=== PATIENT | female | born 1965 | race Caucasian/White ===

== ENCOUNTER → 2020-07-09 | Outpatient (CLI) | payer OTHER ==
[~2020-07-09] MED LIST: NAPROSYN500 MG PO; ZOFRAN4 MG PO
== END ==
LOC: KOH-I 09:41
DX: M25.571 Pain in right ankle and joints of right foot (principal); M19.071 Primary osteoarthritis, right ankle and foot
CPT/HCPCS: 73610; 73630

== ENCOUNTER → 2021-04-22 | Outpatient (CLI) | payer OTHER | LOC: EXRD 14:03 | DX: M25.511 Pain in right shoulder (principal); M25.512 Pain in left shoulder; M54.2 Cervicalgia; M25.529 Pain in unspecified elbow; M54.50 Low back pain, unspecified; M25.549 Pain in joints of unspecified hand; M25.579 Pain in unspecified ankle and joints of unspecified foot; Z87.81 Personal history of (healed) traumatic fracture; M47.817 Spondylosis without myelopathy or radiculopathy, lumbosacral region; M47.812 Spondylosis without myelopathy or radiculopathy, cervical region | CPT/HCPCS: 72050; 72100; 73030; 73080; 73130; 73610; 73630 ==

== ENCOUNTER → 2021-09-02 | Outpatient (CLI) | payer OTHER ==
[2021-09-02 13:55] LABS: BUN/CREATININE RATIO 15 (0-10)
== END ==
LOC: LAB 13:16
PROVIDERS: Nurse Practitioner Family
DX: I10 Essential (primary) hypertension (principal); E53.8 Deficiency of other specified B group vitamins
CPT/HCPCS: 36415; 80048; 82607

== ENCOUNTER → 2021-09-17 | Outpatient (CLI) | payer OTHER | LOC: EXRD 14:35 | DX: R06.02 Shortness of breath (principal); R68.89 Other general symptoms and signs | CPT/HCPCS: 71046 ==

== ENCOUNTER → 2021-11-18 | Outpatient (CLI) | payer OTHER | LOC: HEART 5 07:13 | DX: R07.9 Chest pain, unspecified (principal); R06.02 Shortness of breath | CPT/HCPCS: 78452; A9502; J2785 ==

== ENCOUNTER → 2021-12-02 | Outpatient (CLI) | payer OTHER ==
[2021-12-02 08:44] LABS: HEMOGLOBIN 13.8 gm/dl (12.3-15.3); RED BLOOD COUNT 4.55 M/UL (4.00-5.10); WHITE BLOOD COUNT 5.1 K/UL (4.5-11.0)
[2021-12-04 12:13] LABS: CREATININE, URINE 147.9 mg/dL (Not Estab.)
== END ==
LOC: LAB 08:11
PROVIDERS: Nurse Practitioner Family
DX: Z00.00 Encounter for general adult medical examination without abnormal findings (principal); Z13.1 Encounter for screening for diabetes mellitus; I10 Essential (primary) hypertension; G47.00 Insomnia, unspecified; E73.9 Lactose intolerance, unspecified; M79.7 Fibromyalgia; E53.8 Deficiency of other specified B group vitamins; E55.9 Vitamin D deficiency, unspecified; R35.0 Frequency of micturition
CPT/HCPCS: 36415; 80053; 80061; 81001; 82043; 82570; 82607; 83036; 84439; 84443; 85025